=== PATIENT | male | born 2000 | race Caucasian/White ===

== ENCOUNTER 2019-09-15 13:34 | Emergency (ER) | payer BC ==
[~2019-09-15] VITALS: Ht 190.5 cm; Wt 75.0 kg
[2019-09-15 13:46] VITALS: BP 136/82; TEMP 98.9
[2019-09-15] MEDS ORDERED: CEPHALEXIN500 M1 PO (14:23)
[2019-09-15 14:32] VITALS: PULSE 77
== END 2019-09-15 14:32 | disposition home or self-care (01) ==
LOC: COL.ER 13:34
DX: S91.311A Laceration without foreign body, right foot, initial encounter (principal); F41.9 Anxiety disorder, unspecified; W22.8XXA Striking against or struck by other objects, initial encounter

== ENCOUNTER 2021-01-11 15:22 | Emergency (ER) | payer BC ==
[~2021-01-11] VITALS: Ht 190.5 cm; Wt 72.7 kg
[~2021-01-11 15:22] MED LIST: CEPHALEXIN500 M1 PO
[2021-01-11 17:04] LABS: BASO % 0.3 % (0.0-2.0); GRAN # 2.5 (1.4-6.5); GRAN % 68.2 % (42.2-75.2); HEMATOCRIT 42.8 % (42.0-52.0); LYMPH # 0.8 (1.2-3.4); LYMPH % 22.6 % (20.0-51.0); MEAN CELL VOLUME 87 fl (80.0-100.0); MEAN CORPUSCULAR HEMOGLOBIN 30 pg (27.0-31.0); MEAN CORPUSCULAR HGB CONC 35 g/dl (33.0-37.0); MEAN PLATELET VOLUME 8.8 fl (7.4-10.4); MONO # 0.3 (0.1-0.6); MONO % 8.4 % (1.7-9.3); PLATELET COUNT 211 K/mm3 (130-400); RED BLOOD COUNT 4.93 M/mm3 (4.20-5.60); REDCELL DISTRIBUTION WIDTH-CV 11.9 % (11.5-14.5)
[2021-01-11 17:07] LABS: STREP SCREEN NEGATIVE
[2021-01-11 17:14] LABS: ALBUMIN 4.2 gm/dL (3.5-5.0); BILIRUBIN,TOTAL 0.9 mg/dL (0.2-1.2); CALCIUM 9.3 mg/dL (8.4-10.2); CREATININE, serum 1.35 mg/dL (0.72-1.25); POTASSIUM 3.8 mmol/L (3.5-4.5); TOTAL PROTEIN 7.5 gm/dL (6.2-8.1)
[2021-01-11 17:26] LABS: MONOSCREEN NEGATIVE
[2021-01-11 18:18] VITALS: BP 125/77; PULSE 98; TEMP 99.5
== END 2021-01-11 18:19 | disposition short-term general hospital (02) ==
LOC: COL.ER 15:22
PROVIDERS: Physician Assistant
DX: B34.9 Viral infection, unspecified (principal)
CPT/HCPCS: J7030